=== PATIENT | female | born 1965 | race Caucasian/White ===

== ENCOUNTER 2017-08-29 15:52 | Emergency (ER) | payer SELFPAY ==
[~2017-08-29] VITALS: Ht 152.4 cm; Wt 75.0 kg
[2017-08-29 16:01] VITALS: Ht 152.4 cm; Wt 75.0 kg
[2017-08-29] MEDS ORDERED: SOD CHLORIDE 0.9% 1,000 ML IV ONE (16:30)
--- NOTE | 2017-08-29 18:05 | ERD ---
ER Documentation Chief Complaint Chief Complaint ETOH HPI This 51-year-old female is brought in by paramedics for alcohol intoxication. She is fall found in public acting intoxicated. She is awake and alert and would not talk to paramedics. Obtain a history of to the paramedics left. She does admit that she was drinking alcohol. States that she is otherwise fine and does not want us to do anything. She denies any trauma. Denies any pain. Other than that she does not provide much history chooses not to talk. ROS Unobtainable Medications Home Meds Unable to Obtain Active Prescriptions or Reported Meds Allergies Allergies: Coded Allergies: Unknown: Unable to obtain (Unverified , 08/29/17) Physical Exam Vitals Vital Signs Date Time Temp Pulse Resp B/P Pulse Ox O2 Delivery O2 Flow Rate FiO2 08/29/17 16:01 99.4 112 18 162/98 99 Physical Exam Const: [] No obvious distress, sitting comfortably on gurney maintaining her own posture. Head: Atraumatic Eyes: Normal Conjunctiva, EOMI, PERRLA ENT: Normal External Ears, Nose and Mouth. Mucous membranes are moist. Neck: Full range of motion.. No midline tenderness. Resp: Clear to auscultation bilaterally Cardio: Regular tachycardia, no murmurs Abd: Soft, non tender, non distended. Normal bowel sounds Skin: No petechiae or rashes Back: No midline or flank tenderness Ext: No cyanosis, or edema Neur: Awake and alert, refused to answer orientation questions, cranial nerves II through XII grossly intact, normal gait. Psych: Normal Mood and Affect Results 24 hrs Current Medications Medications (Trade) Dose Ordered Sig/Rishi Route PRN Reason Start Time Stop Time Status Last Admin Dose Admin Sodium Chloride (NS) 1,000 ml @ 1,000 mls/hr Q1H ONCE IV 08/29/17 16:30 08/29/17 17:29 DC Procedures/MDM Adult female with alcohol intoxication. Smells of alcohol admits to drinking alcohol. Does not answer many questions. Because of tachycardia ordered labs on her. She was placed in the ER bed before she was placed on a monitor or laboratories were obtained she had eloped from the ER according to corporate security officer and nurse. She did have a normal gait however did not want her to leave until workup is completed and that she was clinically sober and more cooperative with history taking. Departure Diagnosis: Primary Impression: Alcoholic intoxication Additional Impression: Tachycardia Condition: FRANCI Wang DO Aug 29, 2017 18:03
== END 2017-08-29 16:10 | disposition left against medical advice (07) ==
LOC: E/R 15:52
DX: F10.120 Alcohol abuse with intoxication, uncomplicated (principal); R00.0 Tachycardia, unspecified
CPT/HCPCS: 99282; J7030